=== PATIENT | female | born 1985 | race Two or more races ===

== ENCOUNTER 2024-10-25 14:53 | Emergency (ER) | payer BC ==
[~2024-10-25] VITALS: Ht 170.2 cm; Wt 70.9 kg
[2024-10-25] MEDS ORDERED: DEXT10TA PO (15:22)
--- NOTE | 2024-10-25 15:23 | ED.PDOC ---
History of Present Illness HPI Comments This patient is a 39-year-old female who arrives the ED today with a request for a medication refill due to an emergent conditions. [place] from out of [place] and came to [place] to aid her ill mother. Patient utilize his Adderall and states she has not taken it for four days. Patient states her primary care provider said he would send her a prescription of the state, but she states she has had no luck filling that prescription. Vital signs were stable on arrival. Chief Complaint: Mental Health Time Seen by MD: 15:00 Reviewed Notes: Nurses Notes Allergies: Coded Allergies: NO KNOWN ALLERGIES (Unverified , 10/25/24) Information Source: Patient Mode of Arrival: Ambulatory Severity: Mild Timing: Days Duration: Since onset Medication Refill: Ran out of Medication, For: Other (ADHD) Past Medical History PAST MEDICAL HISTORY: Denies Past Medical History (Other): ADHD Surgical History: Denies all surgeries KEY ACCOUNT COORDINATOR History: No Pertinent KEY ACCOUNT COORDINATOR History Family History Family History: Reviewed,noncontributory to illness, No family hx of Cancer, No family hx of DM, No family hx of Heart lex, No family hx of HTN, No family hx ofKidney lex, No family hx of Liver lex, No family hx of Lung lex, No family hx of Stroke Social History Smoker: Non-Smoker Alcohol: Denies ETOH Use Drugs: Denies Drug Use Lives In: Home Constitutional: denies: chills, diaphoresis, fatigue, fever, malaise, sweats, weakness, others EENTM: denies: blurred vision, double vision, ear bleeding, ear discharge, ear drainage, ear pain, ear ringing, eye pain, eye redness, hearing loss, mouth pain, mouth swelling, nasal discharge, nose bleeding, nose congestion, nose pain, photophobia, tearing, throat pain, throat swelling, voice changes, others Respiratory: denies: cough, hemoptysis, orthopnea, SOB at rest, shortness of breath, SOB with excertion, stridor, wheezing, others Cardiovascular: denies: chest pain, dizzy spells, diaphoresis, Dyspnea on exer tion, edema, irregular heart beat, left arm pain, lightheadedness, palpitations, PND, syncope, others Gastrointestinal: denies: abdomen distended, abdominal pain, blood streaked bowels, constipated, diarrhea, dysphagia, difficulty swallowing, hematemesis, melena, nausea, poor appetite, poor fluid intake, rectal bleeding, rectal pain, vomiting, others Genitourinary: denies: abnormal vagina bleeding, burning, dyspareunia, dysuria, flank pain, frequency, hematuria, incontinence, pain, , vagina discharge, urgency, others Neurological: denies: dizziness, fainting, headache, left sided numbness, left sided weakness, numbness, paresthesia, pre-existing deficit, right sided numbness, right sided weakness, seizure, speech problems, tingling, tremors, weakness, others Musculoskeletal: denies: back pain, gout, joint pain, joint swelling, muscle pain, muscle stiffness, neck pain, others Integumetry: denies: bruises, change in color, change in hair/nails, dryness, laceration, lesions, lumps, rash, wounds, others Allergic/Immunocompromised: denies: Difficulty Healing, Frequent Infections, Hives, Itching, others Hematologic/Lymphatic: denies: anemia, blood clots, easy bleeding, easy bruising, swollen glands, others Endocrine: denies: excessive hunger, excessive sweating, excessive thirst, excessive urination, flushing, intolerance to cold, intolerance to heat, unexplained weight gain, unexplained weight loss, others Psychiatric: reports: anxiety; denies: bipolar disorder, depression, hopeless, panic disorder, schizophrenia, sleepless, suicidal, others Physical Exam General Appearance: Mild Distress (Mild anxiety), Normal HEENT: Normal ENT Inspection, Pharynx Normal, TMs Normal Neck: Full Range of Motion, Non-Tender, Normal, Normal Inspection Respiratory: Chest Non-Tender, Lungs Clear, No Accessory Muscle Use, No Respiratory Distress, Normal Breath Sounds Cardiovascular: No Edema, No JVD, No Murmur, No Gallop, Normal Peripheral Pulses, Regular Rate/Rhythm Breast Exam: Deferred Gastrointestinal: No Organomegaly, Non Tender, No Pulsatile Mass, Normal Bowel Sounds, Soft Genitalia: Deferred Pelvic: Deferred Rectal: Deferred Extremities: No calf tenderness, Normal capillary refill, Normal inspection, Normal range of motion, Non-tender, No pedal edema Neurologic: Alert, construction inspector II-XII nml as Tested, No Motor Deficits, Normal Affect, Normal Mood, No Sensory Deficits Cerebellar Function: Normal Reflexes: Normal Skin: Dry, Normal Color, Warm Lymphatic: No Adenopathy Was a procedure done? Was a procedure done?: No Differential Dx Considerations may include: Medication refill X-Ray, Labs, Meds, VS Vital Signs Date Time Temp Pulse Resp B/P (MAP) Pulse Ox O2 Delivery O2 Flow Rate FiO2 10/25/24 15:03 98.1 78 16 124/85 (98) 98 X-Ray, Labs, Meds, VS Comment Spent time discussing the patient's medication needs. Patient states she takes 30 mg twice a day. I advised the patient that dosing above 40 mg a day is rarely effective. I will prescribe her 20 mg pills for twice a day consumption. Advised her in the that is maximum daily dosing. She will need to return to ED for refill or establish a primary care provider moving forward. Time of 1ST Reevaluation: 15:20 Reevaluation 1ST: Unchanged Consultation: PCP, Psychiatry Patient Education/Counseling: Diagnosis, Treatment Family Education/Counseling: Diagnosis, Treatment Departure 1 Departure Time of Disposition: 15:20 Impression: Primary Impression: Medication refill Disposition: HOME / SELF CARE / HOMELESS Condition: Stable Additional Instructions: Advised patient utilize medication as directed. Advised patient that dosing of this medication above 40 mg a day is rarely effective. Patient will need to establish a primary care provider for dosing above 40 mg a day. e-Prescriptions Dextroamphetamine Sulfate (Dextroamphetamine Sulfate) 10 Mg Tab 2 TAB PO BID, #60 TAB Prov: CHRISTIANNE AWAN PAC 10/25/24 Discharged With: Self, Friend Critical Care Note Critical Care Time?: No Stability Stability form required: No Heart Score Heart Score: Heart Score Response (Comments) Value History N/A 0 EKG N/A 0 Age N/A 0 Risk Factors N/A 0 Troponin N/A 0 Total 0 CHRISTIANNE AWAN PAC Oct 25, 2024 15:23
[2024-10-25 16:18] VITALS: BP 108/85; PULSE 99; RESP 20; TEMP 98.2; O2SAT 95
[2024-10-26] MEDS ORDERED: DEXT10TA PO (16:47)
== END 2024-10-25 16:21 | disposition home or self-care (01) ==
LOC: ER 14:53
DX: Z76.0 Encounter for issue of repeat prescription (principal)